=== PATIENT | male | born 1985 | race Two or more races ===

== ENCOUNTER 2020-04-21 05:29 | Emergency (ER) | payer OTHER ==
--- NOTE | 2020-04-21 07:27 | RADIOLOGY REPORT (SQ) ---
EXAM DESCRIPTION: XR FINGERS COMPLETED DATE/TME: 04/21/2020 06:27 CLINICAL HISTORY: 34 years, Male, wrist/thumb pain; no injury COMPARISON: None. FINDINGS: 3 views of the right first digit. No acute fracture or dislocation. Normal osseous mineralization. IMPRESSION: 1. No acute fractures identified. copyright 2010 [employer] [facility]- All Rights Reserved
--- NOTE | 2020-04-21 07:32 | RADIOLOGY REPORT (SQ) ---
CLINICAL HISTORY: wrist/thumb pain; no injury COMPARISON: None. TECHNIQUE: XR WRIST 3 OR MORE VIEWS 04/21/2020 6:27 AM CDT FINDINGS: There is no fracture. Joint spaces are preserved. Soft tissues are unremarkable. IMPRESSION: No acute osseous findings.
--- NOTE | 2020-04-21 08:17 | ER Document Report ---
ED Medical Screen (RME) - General Chief Complaint: Wrist Pain Stated Complaint: WRIST/THUMB PAIN Time Seen by Provider: 04/21/20 06:22 Notes: Patient is a 34-year-old male who presents emergency department with a chief complaint of left thumb pain. Patient states that he feels a clicking feeling in his DIP joint of his left thumb. Patient is right-handed. Denies any injury. States that over the past few days, and has given him more pain. Exam: Clicking heard when patient flexes his DIP joint of left hand. I have greeted and performed a rapid initial assessment of this patient. A comprehensive ED assessment and evaluation of the patient, analysis of test results and completion of medical decision making process will be conducted by an additional ED providers. - Related Data Allergies/Adverse Reactions: No Known Allergies Allergy (Unverified 04/21/20 06:23) Past Medical History - Social History Frequency of alcohol use: None Drug Abuse: None Physical Exam - Vital signs Vitals: Temp Pulse Resp BP Pulse Ox 98.2 F 88 18 143/92 H 100 04/21/20 05:41 04/21/20 05:41 04/21/20 05:41 04/21/20 05:41 04/21/20 05:41 Course - Vital Signs Vital signs: Temp Pulse Resp BP Pulse Ox 98.2 F 88 18 143/92 H 100 04/21/20 05:41 04/21/20 05:41 04/21/20 05:41 04/21/20 05:41 04/21/20 05:41
--- NOTE | 2020-04-21 08:59 | ER Document Report ---
ED Hand/Wrist Injury - General Chief Complaint: Wrist Pain Stated Complaint: WRIST/THUMB PAIN Time Seen by Provider: 04/21/20 06:22 Notes: CHIEF COMPLAINT: Right thumb pain for 1 week HPI: 34-year-old [id number] male presenting for pain and a clicking sensation in the right thumb over the last week when flexing and extending the thumb. Patient complains of pain in the morning when he wakes up. Denies acute trauma. Denies swelling of the thumb or hand. Has taken no medications for his symptoms. ROS: See HPI - all other systems were reviewed and are otherwise negative Constitutional: no fever Integumentary: no rash Allergy: no hives Musculoskeletal: + extremity pain or swelling Neurological: no numbness/tingling, no weakness MEDICATIONS: I agree with the patient medications as charted by the RN. ALLERGIES: I agree with the allergies as charted by the RN. PAST MEDICAL HISTORY/PAST SURGICAL HISTORY: Reviewed and agree as charted by RN. SOCIAL HISTORY: Reviewed and agree as charted by RN. FAMILY HISTORY: No significant familial comorbid conditions directly related to patient complaint EXAM: Reviewed vital signs as charted by RN. CONSTITUTIONAL: Alert and oriented and responds appropriately to questions. W ell-appearing; well-nourished HEAD: Normocephalic; atraumatic EYES: PERRL; Conjunctivae clear, sclerae non-icteric ENT: normal nose; no rhinorrhea; moist mucous membranes NECK: Supple without meningismus CARD: symmetric distal pulses RESP: Normal chest excursion without splinting or tachypnea ABD/GI: non-distended BACK: The back appears normal EXT: Normal ROM in all joints; non-tender to palpation; no cyanosis, no effusions, no edema. No visible erythema to the right thumb. There is no clicking noise or subluxation noted on flexion extension of the right thumb at the DIP joint space region, no difficulty with abduction or abduction of the thumb. Patient is able to make the okay sign with no difficulty. SKIN: Normal color for age and race; warm; dry; good turgor; no acute lesions noted NEURO: Moves all extremities equally; Motor and sensory function intact PSYCH: The patient's mood and manner are appropriate. Grooming and personal hygiene are appropriate. MDM: 34-year-old male probably with mild tendinitis of the thumb. X-ray does not show evidence of a bony injury or fracture on my review. Will place on Voltaren, ice, orthopedic referral to [facility] for follow-up - Related Data Allergies/Adverse Reactions: No Known Allergies Allergy (Unverified 04/21/20 06:23) Past Medical History - Social History Smoking Status: Former Smoker Frequency of alcohol use: None Drug Abuse: None Family History: Reviewed & Not Pertinent Patient has homicidal ideation: No Physical Exam - Vital signs Vitals: Temp Pulse Resp BP Pulse Ox 98.2 F 88 18 143/92 H 100 04/21/20 05:41 04/21/20 05:41 04/21/20 05:41 04/21/20 05:41 04/21/20 05:41 Course - Vital Signs Vital signs: Temp Pulse Resp BP Pulse Ox 98.2 F 88 18 143/92 H 100 04/21/20 05:41 04/21/20 05:41 04/21/20 05:41 04/21/20 05:41 04/21/20 05:41 Discharge - Discharge Clinical Impression: Tendonitis Condition: Stable Disposition: HOME, SELF-CARE Instructions: Tendonitis ([facility]) Additional Instructions: Take Voltaren for pain as prescribed. Follow-up closely with orthopedics for further evaluation and treatment call for appointment. Ice the thumb 2-3 times daily for 5 to 10 minutes at a time do not place ice directly on the skin. X- ray did not show evidence of a bony injury today Prescriptions: Diclofenac Sodium [Voltaren 50 Mg Tablet.] 50 mg PO BID #20 tablet. Referrals: SEN ANGELA DO [ACTIVE STAFF] - Follow up as needed
[2020-04-21 09:11] VITALS: BP 138/82
== END 2020-04-21 09:07 | disposition home or self-care (01) ==
LOC: ER 05:29
DX: M77.8 Other enthesopathies, not elsewhere classified (principal); M79.644 Pain in right finger(s); Z87.891 Personal history of nicotine dependence
CPT/HCPCS: 99283